=== PATIENT | male | born 1970 | race Caucasian/White ===

== ENCOUNTER 2022-04-30 15:54 | Emergency (ER) | payer OTHER ==
[2022-04-30] MEDS ORDERED: cefTRIAXone 2 GM in Sodium Chloride 0.9% 50 ML IV ONE (16:30)
[2022-04-30] MEDS ORDERED: Vancomycin 0.5 GM in Sodium Chloride 0.9% 250 ML IV ONE (16:30)
[2022-04-30] MEDS ORDERED: Sodium Chloride 0.9% 1,000 ML IV ONE (16:32)
[2022-05-25 20:12] LABS: ESTIMATED GFR 19 mL/min (>60)
[2022-05-25 20:13] LABS: TROPONIN I HIGH SENSITIVITY 724.9 pg/mL (<=60.3)
== END 2022-04-30 18:25 | disposition home or self-care (01) ==
LOC: JP.ED 15:54
DX: N17.9 Acute kidney failure, unspecified (principal); I95.9 Hypotension, unspecified
CPT/HCPCS: 36415; 80053; 82550; 84145; 84443; 84484; 85025; 87040; 87635; 93005; 96361; 96365; 96367; 99285; J0696; J3370; J7030; J7050; U0002